=== PATIENT | male | born 2000 | race Caucasian/White ===

== ENCOUNTER → 2020-07-27 10:55 | Outpatient (CLI) | payer BC, SELFPAY ==
--- NOTE | ~2020-07-27 | XR_ITS ---
XR UGIAC wo [facility] DATE: 07/27/2020 11:38 INDICATION: Nausea, gastroesophageal reflux TECHNIQUE: Air-contrast upper gastrointestinal series 1.8 minutes fluoroscopy time 19.796 total DAP 102 fluoroscopic images COMPARISON: None FINDINGS: There is a very small Zenker's diverticulum No stricture, mucosal fold thickening, erosion, ulceration or intraluminal mass lesion of the esophag us stomach or duodenum is noted otherwise. IMPRESSION: Very small Zenker's diverticulum; otherwise negative Reviewed, dictated and finalized at [facility]. Reviewed, dictated and finalized at [facility].
== END ==
PROVIDERS: Visit Provider Emergency Medicine
DX: K21.9 Gastro-esophageal reflux disease without esophagitis (principal); K22.5 Diverticulum of esophagus, acquired
CPT/HCPCS: 74246

== ENCOUNTER 2021-02-27 00:18 | Day surgery (SDC) | payer BC, SELFPAY ==
[2021-02-14 14:37] VITALS: BMI 25.1
[2021-02-27 07:30] VITALS: BP 137/83; PULSE 90; RESP 18; TEMP 36.3; O2SAT 100
[2021-02-27] MEDS: LACTATED RINGERS 1,000 ML 150 ML IV CONT (07:42)
--- NOTE | 2021-02-27 07:57 | WPDANESEPPF ---
Anes - Initial Pre Proc Eval Procedure: Operation Date: 02/27/21 08:30 Proposed Procedures p Esophagogastroduodenoscopy - Joel Rao MD Date/Time: 02/27/21 07:57 Surgeon: Joel Rao MD Pre Op Diagnosis: bloating, GERD Patient Data Age: 20 Gender: M Height: 1.73 m Weight: 74.7 kg Last Vital Signs Temp 97.3 F L 02/27/21 07:30 Pulse 90 02/27/21 07:30 Resp 18 02/27/21 07:30 BP 137/83 02/27/21 07:30 Pulse Ox 100 02/27/21 07:30 Allergies Allergy/AdvReac Type Severity Reaction Status Date / Time No Known Allergies Allergy Verified 02/27/21 07:29 Home Medications Medication Instructions Recorded Confirmed Type pantoprazole 20 mg tablet,delayed 40 mg PO QAM 01/03/21 02/14/21 History release Patient hx anesthesia problems: none Family hx anesthesia problems: none Results Review: All pre-operative results and documents have been reviewed as part of the pre-operative evaluation. [facility] Past Medical History Medical History (Updated 01/03/21 @ 14:33 by Joel Rao MD) Bloating Social History Social History (Updated 01/03/21 @ 14:20 by Slime Beck CMA) Smoking status: Never smoker Alcohol intake: current Alcohol use details: occasional Substance use: current Substance use type: marijuana Last use: 02-08-21 Living arrangements: with family Spiritual care concerns: No Anes - Eval Final PreProcedure Day of Procedure 02/27/21 07:57 Patient weight: normal Heart: regular rate and rhythm Lungs: clear to auscultation Airway: Mallampati scale class II Neurological: alert and oriented Last oral intake: >/= 8 hours ASA classification: II Emergent: no Anesthetic plan: proceed Anesthesia type and monitoring: general GIVS and standard monitoring Results Review: All pre-operative results and documents have been reviewed as part of the pre-operative evaluation. Informed Consent: The patient's anesthetic plan and its attendant risks and benefits were discussed with the patient/family/POA. Questions were solicited and answers provided to the satisfaction of the patient/family/POA.
--- NOTE | 2021-02-27 08:12 | PM.HPGS ---
History of Present Illness History of Present Illness Consent: Risks, benefits, and alternatives have been discussed and questions answered. Patient agrees to proceed with procedure. Chief complaint: bloating, GERD Narrative: Aaron Pinto is a 20 year old male with burping, nausea and gerd, using ppi. Never had EGD. Review of Systems Constitutional: Constitutional: Denies headache(s) and Denies weakness Eyes: Eyes: Denies blurry vision ENT: Reports Normal hearing present, Denies headache(s) and Denies neck pain Cardiovascular: Cardiovascular: Denies chest pain and Denies dyspnea Respiratory: Respiratory: Denies dyspnea Gastrointestinal: Gastrointestinal: Reports no additional gastrointestinal complaints Genitourinary: Genitourinary: Denies dysuria Musculoskeletal: Musculoskeletal: Denies neck pain Integumentary/Breasts: Skin/Breast: Denies dry skin Neurologic: Reports Normal hearing present, Denies headache(s) and Denies weakness Psychiatric: Psychiatric: Denies anxiety Endocrine: Endocrine: Denies change in body appearance Hematologic/Lymphatic: Hematologic/Lymphatic: Denies easy bleeding Allergic/Immunologic: Allergic/Immunologic: Denies urticaria PMFSH Past Medical History Medical History (Updated 02/27/21 @ 08:13 by Joel Rao MD) Bloating GERD (gastroesophageal reflux disease) Social History Social History (Updated 01/03/21 @ 14:20 by Slime Beck CMA) Smoking status: Never smoker Alcohol intake: current Alcohol use details: occasional Substance use: current Substance use type: marijuana Last use: 02-08-21 Living arrangements: with family Spiritual care concerns: No Meds Home Medications and Allergies Home Medications Medication Instructions Recorded Confirmed Type pantoprazole 20 mg tablet,delayed 40 mg PO QAM 01/03/21 02/14/21 History release Allergies Allergy/AdvReac Type Severity Reaction Status Date / Time No Known Allergies Allergy Verified 02/27/21 07:29 Vital Signs Vital Signs - 24 hr 02/27/21 07:30 Temperature 97.3 F L Pulse Rate 90 Respiratory Rate 18 Blood Pressure 137/83 Pulse Oximetry 100 Exam Const: General: comfortable and no acute distress HENMT: General nose exam: Normal nares present Eyes: General: appearance normal, both eyes and all related structures Neck: Neck: no JVD Resp: Auscultation: clear to auscultation bilaterally Cardio: Rate: regular rate Rhythm: regular rhythm GI: Inspection: non-distended GI Palp: Yes Soft to palpation Skin: General skin exam: normal color Neuro: General: gait normal Speech: normal speech Extrem: General: normal to inspection Psych: Mental Status: mental status grossly normal Assessment and Plan Assessment and plan (1) Bloating: Code(s): R14.0 - Abdominal distension (gaseous) Status: Acute Assessment and Plan: egd with bx (2) GERD (gastroesophageal reflux disease): Code(s): K21.9 - Gastro-esophageal reflux disease without esophagitis Status: Acute
[2021-02-27 08:26] VITALS: BP 125/80; PULSE 75; RESP 20; O2SAT 99
[2021-02-27 08:36] VITALS: BP 123/83; PULSE 92; RESP 26; O2SAT 100
[2021-02-27 08:46] VITALS: BP 122/93; PULSE 73; RESP 26; O2SAT 100
== END 2021-02-27 08:56 | disposition home or self-care (01) ==
PROVIDERS: PCP Emergency Medicine; Visit Provider Internal Medicine Gastroenterology
PROC: 0DJ08ZZ Inspection of Upper Intestinal Tract, Via Natural or Artificial Opening Endoscopic (ICD-10-PCS; CPT 43235; principal; 2021-02-27 08:30)
DX: K21.9 Gastro-esophageal reflux disease without esophagitis (principal); K44.9 Diaphragmatic hernia without obstruction or gangrene; R14.0 Abdominal distension (gaseous)
CPT/HCPCS: 43239; 88305; J2704; J7120